=== PATIENT | male | born 1975 | race African-American/Black ===

== ENCOUNTER → 2024-04-29 08:39 | Outpatient (REF) | payer BC, SELFPAY ==
[2024-04-29 11:24] LABS: ALT (SGPT) 55 U/L (0-50); AST (SGOT) 33 U/L (17-59); Albumin 4.4 g/dl (3.5-5.0); Alkaline Phosphatase 70 U/L (38-126); Blood Urea Nitrogen 17 mg/dl (9-20); Calcium 9.7 mg/dl (8.4-10.2); Carbon Dioxide 29 mmol/L (22-30); Chloride 100 mmol/L (98-107); Direct Bilirubin 0.1 mg/dl (0.0-0.4); Glucose 91 mg/dl (70-99); HDL Cholesterol 69 mg/dl; LDL Cholesterol, Calculated 116 mg/dl; Potassium 4.4 mmol/L (3.5-5.1); Sodium 139 mmol/L (135-145); Total Bilirubin 1.1 mg/dl (0.2-1.3); Total Cholesterol 195 mg/dl (50-199); Total Protein 7.6 g/dl (6.3-8.2); Triglyceride 51 mg/dl (10-149); Very Low Density Lipoprotein 10 mg/dl (0-30); eGFR > 60.00
[2024-04-29 11:30] LABS: Hematocrit 44.4 % (39.0-52.0); Hemoglobin 15.2 g/dL (13.0-18.0); Mean Corp Hgb Conc. 34.2 g/dL (33.0-37.0); Mean Corpuscular Hgb 30.5 pg (27.0-31.0); Mean Corpuscular Volume 89.2 fL (80.0-94.0); Mean Platelet Volume 10.2 fL (7.4-10.4); Platelet Count 235 10^3/uL (130-400); Red Blood Cell Count 4.98 10^6/uL (4.70-6.10); Red Cell Dist. Width 11.8 % (11.5-14.5); White Blood Cell Count 3.8 10^3/uL (4.8-10.8)
[2024-04-29 11:52] LABS: PSA, Total - Screen 1.49 ng/ml (0.0-4.0); TSH Reflex To Free T4 1.47 uIU/ml (0.47-4.68)
[2024-04-29 11:55] LABS: % Basophils 1.1 % (0-2); % Eosinophils 1.1 % (0-6); % Lymphocytes 51.2 % (20.5-51.1); % Monocytes 8.7 % (1.7-9.3); % Neutrophils 37.9 % (42.2-75.2); Absolute Lymphocytes 1.9 10^3/uL (1.2-3.4); Absolute Monocytes 0.3 10^3/uL (0.1-0.6); Absolute Neutrophils 1.4 10^3/uL (1.4-6.5); Nucleated Red Blood Cells % 0 % (-)
[2024-04-29 12:19] LABS: Glycohemoglobin (HgbA1c) 5.5 % (4.0-5.6)
== END ==
LOC: HWLAB 08:39
DX: Z00.01 Encounter for general adult medical examination with abnormal findings (principal); Z13.1 Encounter for screening for diabetes mellitus; D72.819 Decreased white blood cell count, unspecified
CPT/HCPCS: 36415; 80053; 80061; 82248; 83036; 84443; 85025; G0103

== ENCOUNTER → 2025-05-01 08:49 | Outpatient (REF) | payer BC, SELFPAY ==
[2025-05-01 11:54] LABS: Hematocrit 44.2 % (39.0-52.0); Hemoglobin 14.7 g/dL (13.0-18.0); Mean Corp Hgb Conc. 33.3 g/dL (33.0-37.0); Mean Corpuscular Volume 90.2 fL (80.0-94.0); Platelet Count 208 10^3/uL (130-400); Red Cell Dist. Width 12.0 % (11.5-14.5)
[2025-05-01 12:23] LABS: ALT (SGPT) 67 U/L (0-50); AST (SGOT) 39 U/L (17-59); Albumin 4.3 g/dl (3.5-5.0); Alkaline Phosphatase 65 U/L (38-126); Blood Urea Nitrogen 17 mg/dl (9-20); Calcium 9.7 mg/dl (8.4-10.2); Carbon Dioxide 30 mmol/L (22-30); Chloride 103 mmol/L (98-107); Glucose 98 mg/dl (70-99); HDL Cholesterol 73 mg/dl; LDL Cholesterol, Calculated 138 mg/dl; Magnesium 1.8 mg/dl (1.6-2.3); Potassium 3.8 mmol/L (3.5-5.1); Sodium 135 mmol/L (135-145); Total Protein 7.7 g/dl (6.3-8.2); Very Low Density Lipoprotein 8 mg/dl (0-30); eGFR > 60.00
[2025-05-01 12:29] LABS: Glycohemoglobin (HgbA1c) 5.6 % (4.0-5.9)
[2025-05-01 12:35] LABS: Nucleated Red Blood Cells % 0 % (-)
[2025-05-01 12:51] LABS: PSA, Total - Screen 1.37 ng/ml (0.0-4.0)
== END ==
LOC: HWLAB 08:49
DX: Z00.01 Encounter for general adult medical examination with abnormal findings (principal); Z83.3 Family history of diabetes mellitus; Z80.42 Family history of malignant neoplasm of prostate; Z12.5 Encounter for screening for malignant neoplasm of prostate
CPT/HCPCS: 36415; 80053; 80061; 83036; 83735; 84443; 85025; G0103